=== PATIENT | female | born 1990 ===

== ENCOUNTER 2021-09-13 12:19 | Emergency (ER) | payer OTHER ==
[~2021-09-13] VITALS: Ht 10.2 cm; Wt 9.7 kg
[2021-09-13 14:21] VITALS: BP 136/89
[2021-09-13] MEDS ORDERED: TRIA0.1O TOP (14:34)
[2021-09-13] MEDS ORDERED: CEPH500T PO (14:34)
== END 2021-09-13 15:03 | disposition home or self-care (01) ==
LOC: ER 12:19
DX: S40.862A Insect bite (nonvenomous) of left upper arm, initial encounter (principal); Z90.49 Acquired absence of other specified parts of digestive tract; Z79.899 Other long term (current) drug therapy; W57.XXXA Bitten or stung by nonvenomous insect and other nonvenomous arthropods, initial encounter; Y93.89 Activity, other specified; Y92.89 Other specified places as the place of occurrence of the external cause; Y99.8 Other external cause status